=== PATIENT | female | born 1965 | race Caucasian/White ===

== ENCOUNTER 2017-02-05 05:45 | Day surgery (SDC) | payer MEDICARE, OTHER ==
[~2017-02-05] VITALS: Ht 162.6 cm; Wt 71.8 kg
[~2017-02-05 05:45] MED LIST: ACET-66 PO; CETI-193 PO; INSLAN SQ; INSNOV SQ; NAPR220C15 PO; PANT40TA25 PO
[2017-02-05] MEDS ORDERED: CeFAZolin 2 GM/DEXTROSE 0 ML IV ONE (05:50)
[2017-02-05] MEDS ORDERED: RINGERS SOLUTION,LACTATED 1,000 ML IV ONE ×2 (05:50→06:00)
[2017-02-05 06:32] LABS: GLUCOSE,POINT OF CARE 91 MG/DL (70-110)
[2017-02-05] MEDS ORDERED: CLINDAMYCIN 600 MG/D5% WATER 50 ML IV ONE (06:45)
[2017-02-05] MEDS ORDERED: GUM MASTIC/STORAX/MSAL/ALCOHOL LIQUID 0.67 ML VIAL TP ONE (06:49)
[2017-02-05] MEDS: BUPIVACAINE HCL/PF 0.5% 30 ML VIAL ONE ×2 (06:51→07:45)
[2017-02-05] MEDS: LIDOCAINE HCL 2%/EPI 1:200,000/PF 10 ML VIAL ONE ×2 (06:52→07:45)
[2017-02-05] MEDS ORDERED: CeFAZolin 2 GM/DEXTROSE 50 ML IV ONE (07:30)
[2017-02-05] MEDS ORDERED: HYDROmorphone 2 MG/ML SYRINGE IVP PRN (08:15)
[2017-02-05] MEDS ORDERED: MEPERIDINE-PF 25 MG/ML SYRINGE IVP PRN (08:15)
[2017-02-05] MEDS ORDERED: FentaNYL CITRATE-PF 100 MCG/2 ML VIAL IVP PRN (08:15)
[2017-02-05] MEDS ORDERED: IBUPROFEN 800 MG TABLET PO PRN (08:15)
[2017-02-05] MEDS ORDERED: SUCCINYLCHOLINE CHLORIDE 20 MG/ML 10 ML VIAL IVP ONE (12:00)
[2017-02-05] MEDS ORDERED: LIDOCAINE HCL/PF 2% 5 ML VIAL INJ ONE (12:00)
[2017-02-05] MEDS ORDERED: MIDAZOLAM HCL 2 MG/2 ML VIAL IVP ONE (12:00)
[2017-02-05] MEDS ORDERED: FentaNYL CITRATE-PF 100 MCG/2 ML VIAL IVP ONE (12:00)
[2017-02-05] MEDS ORDERED: PROPOFOL 1% 20 ML VIAL IVP ONE (12:00)
[2017-02-05] MEDS ORDERED: OXYGEN THERAPY IH SCH (20:00)
== END 2017-02-05 10:00 | disposition home or self-care (01) ==
LOC: SURGERY 05:45
PROVIDERS: ATTEND Surgery
DX: D23.5 Other benign neoplasm of skin of trunk (principal); E11.9 Type 2 diabetes mellitus without complications; I10 Essential (primary) hypertension; F17.210 Nicotine dependence, cigarettes, uncomplicated; Z90.710 Acquired absence of both cervix and uterus
CPT/HCPCS: 11404; 82962; 93005; J3490 ×3; J7120; 88304; J0330; J0690; J2250; J2704; J3010